=== PATIENT | male | born 1980 | race American Indian/Alaskan Native ===

== ENCOUNTER 2018-05-17 21:51 | Inpatient (IN) | payer OTHER ==
--- NOTE | 2018-05-18 01:57 | XRay Report ---
PROCEDURE: XR CHEST 1V AP TECHNIQUE: A single view of the chest was obtained. HISTORY: Chest Pain COMPARISONS: None FINDINGS: The heart size and vascularity appear normal. The lungs are clear. Pleural fluid is not seen. The bon es and soft tissues do not show any acute changes. IMPRESSION: No acute cardiopulmonary process.. This document is electronically signed by Lion Dixon MD., May 18 2018 01:55:07 AM ET
[2018-05-18 01:59] LABS: Basophils % (Auto) 0.2 % (0.0-1.8); Eosinophils % (Auto) 0.1 % (0.0-4.3); Hematocrit 35.8 % (35.5-45.6); Hemoglobin 12.6 gm/dl (11.8-15.2); Lymphocytes % (Auto) 17.8 % (13.4-35.0); Mean Corpuscular HGB Conc 35 % (32-34); Mean Corpuscular Volume 84 fl (84-94); Monocytes # (Auto) 0.8 K/mm3 (0.0-0.8); Monocytes % (Auto) 7.2 % (0.0-7.3); Platelet Count 125 K/mm3 (140-440); Red Blood Count 4.27 M/mm3 (3.65-5.03); Red Cell Distribution Width 13.6 % (13.2-15.2)
[2018-05-18 02:34] LABS: BUN/Creatinine Ratio 8; Blood Urea Nitrogen 5 mg/dL (9-20); Calcium 9.1 mg/dL (8.4-10.2); Hemolysis Index 6
[2018-05-18 03:07] LABS: Amphetamine Screen,Urine PRESUMPTIVE NEGATIVE; Benzodiazepines Screen,Urine PRESUMPTIVE NEGATIVE; Cannabinoid Screen,Urine PRESUMPTIVE NEGATIVE; Cocaine Screen,Urine PRESUMPTIVE NEGATIVE; Methadone Screen,Urine PRESUMPTIVE NEGATIVE; Opiate Screen,Urine PRESUMPTIVE NEGATIVE
[2018-05-18 03:27] LABS: Bilirubin,Urine NEG (Negative); Blood,Urine MOD (Negative); Color,Urine Straw (Yellow); Protein,Urine <15 mg/dL mg/dL (Negative); Urobilinogen,Urine < 2.0 mg/dL (<2.0); WBC,Urine < 1.0 /HPF (0.0-6.0)
[2018-05-18] MEDS ORDERED: NACL 0.9% 1000 ML 1,000 ML IV ONE (06:10)
[2018-05-18] MEDS ORDERED: K-DUR PO ONE (06:10)
--- NOTE | 2018-05-18 06:10 | Emergency Department Report ---
ED General Adult HPI - General Chief complaint: Psych Stated complaint: DETOX Time Seen by Provider: 05/18/18 06:08 Source: patient Mode of arrival: Ambulatory Limitations: No Limitations - History of Present Illness Initial comments: This is a 38 year old man that states "I drank anything I can get". He is accompanied by staff from the [place] [facility] who brought him here for medical clearance. He is not going to be medically cleared today as he is altered with hyponatremia. He is not able to provide me with much of the history. He is awake and will answer questions but not in any significant detail. He has no active complaints. He tells me his first name but not his last. He does not state where he is. He denies other substance abuse. He denies any overdose of other medication. He requested detox at the [facility]. -: year(s) Associated Symptoms: denies other symptoms (Limited review of systems) - Related Data Allergies Allergy/AdvReac Type Severity Reaction Status Date / Time escitalopram [From Lexapro] Allergy Unknown Verified 05/17/18 21:54 ED Review of Systems ROS: Stated complaint: DETOX Other details as noted in HPI Comment: Unobtainable due to pts medical conditions (Limited) ED Past Medical Hx - Past Medical History Previous Medical History?: Yes Hx Psychiatric Treatment: Yes (etoh) Hx Asthma: Yes Additional medical history: States he has been told his sodium was low in the past. - Surgical History Past Surgical History?: No - Social History Smoking Status: Never Smoker Substance Use Type: Alcohol ED Physical Exam - General General appearance: in no apparent distress, lethargic (mildly) - Head Head exam: Present: atraumatic, normocephalic - Eye Eye exam: Present: normal appearance, PERRL, EOMI. Absent: scleral icterus - ENT ENT exam: Present: mucous membranes moist - Neck Neck exam: Present: normal inspection. Absent: tenderness, meningismus - Respiratory Respiratory exam: Present: normal lung sounds bilaterally. Absent: respiratory distress - Cardiovascular Cardiovascular Exam: Present: regular rate, normal rhythm. Absent: systolic murmur, diastolic murmur, rubs, gallop - GI/Abdominal GI/Abdominal exam: Present: soft, normal bowel sounds, other (obese). Absent: distended, tenderness, guarding, rebound, rigid - Rectal Rectal exam: Present: deferred - Extremities Exam Extremities exam: Present: normal inspection - Back Exam Back exam: Present: normal inspection - Neurological Exam Neurological exam: Present: alert, oriented X3, CN II-XII intact. Absent: motor sensory deficit - Psychiatric Psychiatric exam: Present: normal mood, flat affect - Skin Skin exam: Present: warm, dry, intact, normal color. Absent: rash ED Course Vital Signs 05/17/18 22:50 Temperature 98.7 F Pulse Rate 118 H Respiratory 18 Rate Blood Pressure 148/91 O2 Sat by Pulse 98 Oximetry - Reevaluation(s) Reevaluation #1: I have begun repleting the patient's sodium. I've ordered a banana bag. He will need a CIWA protocol. He is meeting criteria for hospitalization. I will do a CT of his head first. 05/18/18 06:51 Reevaluation #2: Patient given Ativan at the request of the nurse and Zofran. CT of the head and chest x-ray normal. He will certainly suffer withdrawal and needs C1 protocol. Hospitalist will be informed of the need to admit etc. 05/18/18 08:28 ED Medical Decision Making - Lab Data Result diagrams: 05/18/18 01:45 05/18/18 01:45 Laboratory Results - last 24 hr 05/18/18 05/18/18 05/18/18 01:45 01:45 01:45 WBC RBC Hgb Hct MCV MCH MCHC RDW Plt Count Lymph % (Auto) Bibb % (Auto) Eos % (Auto) Baso % (Auto) Lymph # Bibb # Eos # Baso # Seg Neutrophils % Seg Neutrophils # Sodium 125 L Potassium 3.0 L Chloride 79.3 L Carbon Dioxide 25 Anion Gap 24 BUN 5 L Creatinine 0.6 L Estimated GFR > 60 BUN/Creatinine Ratio 8 Glucose 173 H Calcium 9.1 Troponin T < 0.010 Urine Color Urine Turbidity Urine pH Ur Specific [place] Urine Protein Urine Glucose (UA) Urine Ketones Urine Blood Urine Nitrite Urine Bilirubin Urine Urobilinogen Ur Leukocyte Esterase Urine WBC (Auto) Urine RBC (Auto) Salicylates < 0.3 L Urine Opiates Screen Urine Methadone Screen Acetaminophen < 5.0 L Ur Barbiturates Screen Ur Phencyclidine Scrn Ur Amphetamines Screen U Benzodiazepines Scrn Urine Cocaine Screen U Marijuana (THC) Screen Drugs of Abuse Note Plasma/Serum Alcohol 05/18/18 05/18/18 05/18/18 01:45 01:45 02:36 WBC 11.1 H RBC 4.27 Hgb 12.6 Hct 35.8 MCV 84 MCH 30 MCHC 35 H RDW 13.6 Plt Count 125 L Lymph % (Auto) 17.8 Bibb % (Auto) 7.2 Eos % (Auto) 0.1 Baso % (Auto) 0.2 Lymph # 2.0 Bibb # 0.8 Eos # 0.0 Baso # 0.0 Seg Neutrophils % 74.7 H Seg Neutrophils # 8.3 H Sodium Potassium Chloride Carbon Dioxide Anion Gap BUN Creatinine Estimated GFR BUN/Creatinine Ratio Glucose Calcium Troponin T Urine Color Straw Urine Turbidity Clear Urine pH 7.0 Ur Specific [place] 1.002 L Urine Protein <15 mg/dl Urine Glucose (UA) Neg Urine Ketones Neg Urine Blood Mod Urine Nitrite Neg Urine Bilirubin Neg Urine Urobilinogen < 2.0 Ur Leukocyte Esterase Neg Urine WBC (Auto) < 1.0 Urine RBC (Auto) 1.0 Salicylates Urine Opiates Screen Urine Methadone Screen Acetaminophen Ur Barbiturates Screen Ur Phencyclidine Scrn Ur Amphetamines Screen U Benzodiazepines Scrn Urine Cocaine Screen U Marijuana (THC) Screen Drugs of Abuse Note Plasma/Serum Alcohol 0.16 H 05/18/18 05/18/18 02:36 04:44 WBC RBC Hgb Hct MCV MCH MCHC RDW Plt Count Lymph % (Auto) Bibb % (Auto) Eos % (Auto) Baso % (Auto) Lymph # Bibb # Eos # Baso # Seg Neutrophils % Seg Neutrophils # Sodium Potassium Chloride Carbon Dioxide Anion Gap BUN Creatinine Estimated GFR BUN/Creatinine Ratio Glucose Calcium Troponin T < 0.010 Urine Color Urine Turbidity Urine pH Ur Specific [place] Urine Protein Urine Glucose (UA) Urine Ketones Urine Blood Urine Nitrite Urine Bilirubin Urine Urobilinogen Ur Leukocyte Esterase Urine WBC (Auto) Urine RBC (Auto) Salicylates Urine Opiates Screen Presumptive negative Urine Methadone Screen Presumptive negative Acetaminophen Ur Barbiturates Screen Presumptive negative Ur Phencyclidine Scrn Presumptive negative Ur Amphetamines Screen Presumptive negative U Benzodiazepines Scrn Presumptive negative Urine Cocaine Screen Presumptive negative U Marijuana (THC) Screen Presumptive negative Drugs of Abuse Note Disclamer Plasma/Serum Alcohol Laboratory Results - last 24 hr 05/18/18 05/18/18 05/18/18 01:45 01:45 01:45 WBC RBC Hgb Hct MCV MCH MCHC RDW Plt Count Lymph % (Auto) Bibb % (Auto) Eos % (Auto) Baso % (Auto) Lymph # Bibb # Eos # Baso # Seg Neutrophils % Seg Neutrophils # PT INR APTT Sodium 125 L Potassium 3.0 L Chloride 79.3 L Carbon Dioxide 25 Anion Gap 24 BUN 5 L Creatinine 0.6 L Estimated GFR > 60 BUN/Creatinine Ratio 8 Glucose 173 H Osmolality Calcium 9.1 Magnesium Total Bilirubin Direct Bilirubin Indirect Bilirubin AST ALT Alkaline Phosphatase Total Creatine Kinase CK-MB (CK-2) CK-MB (CK-2) Rel Index Troponin T < 0.010 NT-Pro-B Natriuret Pep Total Protein Albumin Albumin/Globulin Ratio Lipase Urine Color Urine Turbidity Urine pH Ur Specific [place] Urine Protein Urine Glucose (UA) Urine Ketones Urine Blood Urine Nitrite Urine Bilirubin Urine Urobilinogen Ur Leukocyte Esterase Urine WBC (Auto) Urine RBC (Auto) Salicylates < 0.3 L Urine Opiates Screen Urine Methadone Screen Acetaminophen < 5.0 L Ur Barbiturates Screen Ur Phencyclidine Scrn Ur Amphetamines Screen U Benzodiazepines Scrn Urine Cocaine Screen U Marijuana (THC) Screen Drugs of Abuse Note Plasma/Serum Alcohol 05/18/18 05/18/18 05/18/18 01:45 01:45 02:36 WBC 11.1 H RBC 4.27 Hgb 12.6 Hct 35.8 MCV 84 MCH 30 MCHC 35 H RDW 13.6 Plt Count 125 L Lymph % (Auto) 17.8 Bibb % (Auto) 7.2 Eos % (Auto) 0.1 Baso % (Auto) 0.2 Lymph # 2.0 Bibb # 0.8 Eos # 0.0 Baso # 0.0 Seg Neutrophils % 74.7 H Seg Neutrophils # 8.3 H PT INR APTT Sodium Potassium Chloride Carbon Dioxide Anion Gap BUN Creatinine Estimated GFR BUN/Creatinine Ratio Glucose Osmolality Calcium Magnesium Total Bilirubin Direct Bilirubin Indirect Bilirubin AST ALT Alkaline Phosphatase Total Creatine Kinase CK-MB (CK-2) CK-MB (CK-2) Rel Index Troponin T NT-Pro-B Natriuret Pep Total Protein Albumin Albumin/Globulin Ratio Lipase Urine Color Straw Urine Turbidity Clear Urine pH 7.0 Ur Specific [place] 1.002 L Urine Protein <15 mg/dl Urine Glucose (UA) Neg Urine Ketones Neg Urine Blood Mod Urine Nitrite Neg Urine Bilirubin Neg Urine Urobilinogen < 2.0 Ur Leukocyte Esterase Neg Urine WBC (Auto) < 1.0 Urine RBC (Auto) 1.0 Salicylates Urine Opiates Screen Urine Methadone Screen Acetaminophen Ur Barbiturates Screen Ur Phencyclidine Scrn Ur Amphetamines Screen U Benzodiazepines Scrn Urine Cocaine Screen U Marijuana (THC) Screen Drugs of Abuse Note Plasma/Serum Alcohol 0.16 H 05/18/18 05/18/18 05/18/18 02:36 04:44 06:27 WBC RBC Hgb Hct MCV MCH MCHC RDW Plt Count Lymph % (Auto) Bibb % (Auto) Eos % (Auto) Baso % (Auto) Lymph # Bibb # Eos # Baso # Seg Neutrophils % Seg Neutrophils # PT 15.5 H INR 1.16 H APTT 28.3 Sodium Potassium Chloride Carbon Dioxide Anion Gap BUN Creatinine Estimated GFR BUN/Creatinine Ratio Glucose Osmolality Calcium Magnesium Total Bilirubin Direct Bilirubin Indirect Bilirubin AST ALT Alkaline Phosphatase Total Creatine Kinase CK-MB (CK-2) CK-MB (CK-2) Rel Index Troponin T < 0.010 NT-Pro-B Natriuret Pep Total Protein Albumin Albumin/Globulin Ratio Lipase Urine Color Urine Turbidity Urine pH Ur Specific [place] Urine Protein Urine Glucose (UA) Urine Ketones Urine Blood Urine Nitrite Urine Bilirubin Urine Urobilinogen Ur Leukocyte Esterase Urine WBC (Auto) Urine RBC (Auto) Salicylates Urine Opiates Screen Presumptive negative Urine Methadone Screen Presumptive negative Acetaminophen Ur Barbiturates Screen Presumptive negative Ur Phencyclidine Scrn Presumptive negative Ur Amphetamines Screen Presumptive negative U Benzodiazepines Scrn Presumptive negative Urine Cocaine Screen Presumptive negative U Marijuana (THC) Screen Presumptive negative Drugs of Abuse Note Disclamer Plasma/Serum Alcohol 05/18/18 05/18/18 05/18/18 06:27 06:27 06:27 WBC RBC Hgb Hct MCV MCH MCHC RDW Plt Count Lymph % (Auto) Bibb % (Auto) Eos % (Auto) Baso % (Auto) Lymph # Bibb # Eos # Baso # Seg Neutrophils % Seg Neutrophils # PT INR APTT Sodium Potassium Chloride Carbon Dioxide Anion Gap BUN Creatinine Estimated GFR BUN/Creatinine Ratio Glucose Osmolality 278 Calcium Magnesium 1.10 L Total Bilirubin 2.00 H Direct Bilirubin 0.6 H Indirect Bilirubin 1.4 AST 226 H ALT 67 H Alkaline Phosphatase 76 Total Creatine Kinase CK-MB (CK-2) CK-MB (CK-2) Rel Index Troponin T < 0.010 NT-Pro-B Natriuret Pep 31.89 Total Protein 8.0 Albumin 4.4 Albumin/Globulin Ratio 1.2 Lipase 55 Urine Color Urine Turbidity Urine pH Ur Specific [place] Urine Protein Urine Glucose (UA) Urine Ketones Urine Blood Urine Nitrite Urine Bilirubin Urine Urobilinogen Ur Leukocyte Esterase Urine WBC (Auto) Urine RBC (Auto) Salicylates Urine Opiates Screen Urine Methadone Screen Acetaminophen Ur Barbiturates Screen Ur Phencyclidine Scrn Ur Amphetamines Screen U Benzodiazepines Scrn Urine Cocaine Screen U Marijuana (THC) Screen Drugs of Abuse Note Plasma/Serum Alcohol 05/18/18 05/18/18 06:27 07:30 WBC RBC Hgb Hct MCV MCH MCHC RDW Plt Count Lymph % (Auto) Bibb % (Auto) Eos % (Auto) Baso % (Auto) Lymph # Bibb # Eos # Baso # Seg Neutrophils % Seg Neutrophils # PT INR APTT Sodium Potassium Chloride Carbon Dioxide Anion Gap BUN Creatinine Estimated GFR BUN/Creatinine Ratio Glucose Osmolality Calcium Magnesium Total Bilirubin Direct Bilirubin Indirect Bilirubin AST ALT Alkaline Phosphatase Total Creatine Kinase 4321 H CK-MB (CK-2) 22.2 H CK-MB (CK-2) Rel Index 0.5 Troponin T < 0.010 NT-Pro-B Natriuret Pep Total Protein Albumin Albumin/Globulin Ratio Lipase Urine Color Urine Turbidity Urine pH Ur Specific [place] Urine Protein Urine Glucose (UA) Urine Ketones Urine Blood Urine Nitrite Urine Bilirubin Urine Urobilinogen Ur Leukocyte Esterase Urine WBC (Auto) Urine RBC (Auto) Salicylates Urine Opiates Screen Urine Methadone Screen Acetaminophen Ur Barbiturates Screen Ur Phencyclidine Scrn Ur Amphetamines Screen U Benzodiazepines Scrn Urine Cocaine Screen U Marijuana (THC) Screen Drugs of Abuse Note Plasma/Serum Alcohol - EKG Data -: EKG Interpreted by [facility] EKG shows normal: sinus rhythm, axis, intervals, QRS complexes, ST-T waves Rate: tachycardia - EKG Data Interpretation: other (tiny R in the 2 sinus tachycardia and nonspecific) - Radiology Data Radiology results: report reviewed (chest x-ray no acute process) Critical care attestation.: If time is entered above; I have spent that time in minutes in the direct care of this critically ill patient, excluding procedure time. ED Disposition Clinical Impression: Hyponatremia, Encephalopathy acute, Hypokalemia, Thrombocytopenia, Alcohol abuse Alcoholic cirrhosis Qualifiers: Ascites presence: unspecified Qualified Code(s): K70.30 - Alcoholic cirrhosis of liver without ascites Rhabdomyolysis Qualifiers: Rhabdomyolysis type: non-traumatic Qualified Code(s): M62.82 - Rhabdomyolysis Alcohol withdrawal Qualifiers: Complication of substance-induced condition: uncomplicated Qualified Code(s): F10.230 - Alcohol dependence with withdrawal, uncomplicated Disposition: DC-09 OP ADMIT IP TO THIS HOSP Is pt being admited?: Yes Does the pt Need Aspirin: Yes Condition: Stable Time of Disposition: 08:29
[2018-05-18] MEDS ORDERED: VITAMIN B-1 PO ONE (06:19)
[2018-05-18] MEDS ORDERED: FOLVITE 1 MG, INFUVITE 10 ML in NACL 0.9% 1000 ML 1,000 ML IV ONE (06:19)
[2018-05-18] MEDS ORDERED: VITAMIN B-1 100 MG, FOLVITE 1 MG, INFUVITE 10 ML in NACL 0.9% 1000 ML 1,000 ML IV ONE (06:19)
[2018-05-18 07:07] LABS: Creatine Kinase MB 22.2 ng/mL (0.0-4.0)
[2018-05-18 07:09] LABS: INR 1.16 (0.87-1.13); Partial Thromboplastin Time 28.3 Sec. (24.2-36.6)
[2018-05-18 07:13] LABS: Albumin 4.4 g/dL (3.9-5); Bilirubin,Direct 0.6 mg/dL (0-0.2)
--- NOTE | 2018-05-18 07:31 | Cat Scan Report ---
PROCEDURE: CT HEAD/BRAIN WO CON TECHNIQUE: Routine axial imaging was obtained of the brain without IV contrast. HISTORY: AMS low sodium COMPARISONS: None FINDINGS: There is no evidence of acute stroke or hemorrhage. The ventricular system is appropriate in size and is symmetric. The visualized sinuses are clear. The calvarium appears normal. IMPRESSION: Within normal limits.. This document is electronically signed by Lion Dixon MD., May 18 2018 07:29:02 AM ET
[2018-05-18] MEDS ORDERED: ATIVAN IV ONE (08:11)
[2018-05-18] MEDS ORDERED: ZOFRAN IV ONE (08:13)
[2018-05-18] MEDS ORDERED: BABY ASPIRIN PO ONE (08:30)
[2018-05-18 12:50] LABS: Bilirubin,Urine NEG (Negative); Blood,Urine NEG (Negative); Color,Urine Straw (Yellow); Protein,Urine <15 mg/dL mg/dL (Negative); Urobilinogen,Urine < 2.0 mg/dL (<2.0)
[2018-05-18] MEDS ORDERED: ATIVAN IV PRN ×2 (13:09→13:12)
[2018-05-18] MEDS ORDERED: LIBRIUM PO PRN ×2 (13:10→17:12)
[2018-05-18] MEDS ORDERED: TYLENOL PO PRN (13:11)
[2018-05-18] MEDS ORDERED: PERCOCET 5/325 PO PRN (13:11)
[2018-05-18] MEDS ORDERED: APRESOLINE IV PRN (13:11)
[2018-05-18] MEDS ORDERED: REGLAN PO PRN (13:11)
[2018-05-18] MEDS ORDERED: NON-FORMULARY (Omeprazole 40 MG) PO SCH (13:15)
--- NOTE | 2018-05-18 13:15 | History and Physical Report ---
History of Present Illness Date of examination: 05/18/18 Date of admission: 05/18/18 08:45 Chief complaint: My sodium was low History of present illness: This is a 38 year old man with h/o asthma and heavy alcohol drinking for years, last drink was yesterday accompanied by staff from the [facility] who brought him here for medical clearance. He is not going to be medically cleared today as he was altered with hyponatremia. In the ER his Na noted 123, K 3.0, CPK 4321. He was placed on iv fluid and called for admission. During this encounter he was oriented X3, able to provide history, denies any chest pain. The patient was admitted for further evaluation and management. Past medical History: h/o asthma Past surgical History: None Social History: Lives with family, + smoking, + drinking and denies elicit drug abuse. Family History: Significant for cancer at the maternal side. Does not know father's history. Review of System: Constitutional: no fever, no chills, no weight loss Ears, eyes, nose, mouth and throat: no nasal congestion, no nasal discharge, no sinus pressure, no vision change, no red eye. Neck: No neck pain or rigidity. Cardiovascular: No chest pain, no orthopnea, no palpitations, no leg swelling Respiratory: No shortness of breath, no cough, no congestion, no wheezing Gastrointestinal: no abdominal pain, no nausea, no vomiting Genitourinary : no dysuria, no hematuria Musculoskeletal: no joint swelling or muscle ache Integumentary: no rash, no pruritis Neurological: no parathesias, no numbness, no tingling Endocrine: no cold or heat intolerance, no polyuria or polydipsia Hematologic/Lymphatic: no easy bruising, no easy bleeding, no gland swelling Allergic/Immunologic: no urticaria, no angioedema. Medications and Allergies Allergies Allergy/AdvReac Type Severity Reaction Status Date / Time escitalopram [From Lexapro] Allergy Unknown Verified 05/17/18 21:54 Home Medications Medication Instructions Recorded Confirmed Last Taken Type Carvedilol [Coreg] 12.5 mg PO DAILY 05/18/18 05/18/18 05/16/18 History Losartan [Cozaar] 160 mg PO QDAY 05/18/18 05/18/18 05/16/18 History Multivit,Stress Formula/Zinc 1 tab PO DAILY 05/18/18 05/18/18 05/16/18 History Omeprazole 40 mg PO DAILY 05/18/18 05/18/18 05/16/18 History hydroCHLOROthiazide 25 mg PO DAILY 05/18/18 05/18/18 05/16/18 History Active Meds: Active Medications Acetaminophen (Tylenol) 650 mg PO Q4H PRN PRN Reason: Pain MILD(1-3)/Fever >100.5/ISAAC Carvedilol (Coreg) 12.5 mg PO DAILY [facility] Chlordiazepoxide HCl (Librium) 50 mg PO Q1H PRN PRN Reason: CIWA-Ar 8-15 Folic Acid (Folvite) 1 mg PO QDAY [facility] Hydralazine HCl (Apresoline) 5 mg IV Q30MIN PRN PRN Reason: Hypertension Potassium Chloride/Dextrose/Sod Cl (D5w/Ns W/Kcl 20meq) 20 meq in 1,000 mls @ 75 mls/hr IV DIRECT [facility] Insulin Human Regular (Humulin R) 0 units SUB-Q ACHS MEGAN; Protocol Lorazepam (Ativan) 1 mg IV Q4H PRN PRN Reason: Agitation Metoclopramide HCl (Reglan) 10 mg PO Q6H PRN PRN Reason: Nausea And Vomiting Miscellaneous Medication (Omeprazole) 40 mg PO DAILY [facility] Oxycodone/Acetaminophen (Percocet 5/325) 1 tab PO Q6H PRN PRN Reason: Pain, Moderate (4-6) Pneumococcal Polyvalent Vaccine (Pneumovax 23) 0.5 ml IM .ONCE ONE Stop: 05/19/18 12:01 Thiamine HCl (Vitamin B-1) 100 mg PO QDAY [facility] Exam - Physical Exam Narrative exam: GENERAL: well-developed and well-nourished obese WM lying on bed appeared to be in no discomfort. HEENT: Normocephalic. Atraumatic. No conjunctival congestion or icterus. Patient has moist mucous membranes. NECK: Supple. Trachea midline. CHEST/LUNGS: Clear to auscultated bilaterally, breathing nonlabored. No wheezes crackles or rhonchi. HEART/CARDIOVASCULAR: Regular in rate and rhythm. S1 and S2 positive. ABDOMEN: Abdomen is soft, nontender. Patient has normal bowel sounds. SKIN: There is no rash. Warm and dry. NEURO: No focal motor deficit. Follows command. MUSCULOSKELETAL: No joint effusion or tenderness. EXTRIMITY: No edema, no cyanosis or clubbing. PSYCH: Cooperative. - Constitutional Vitals: Temp Pulse Resp BP Pulse Ox 100.0 F H 105 H 20 161/85 93 05/18/18 11:13 05/18/18 11:13 05/18/18 11:13 05/18/18 11:13 05/18/18 11:13 Results - Labs CBC & Chem 7: 05/19/18 06:30 05/20/18 04:36 Labs: Abnormal lab results 05/18/18 05/18/18 05/18/18 Range/Units 01:45 01:45 01:45 WBC (4.5-11.0) K/mm3 MCHC (32-34) % Plt Count (140-440) K/mm3 Seg Neutrophils % (40.0-70.0) % Seg Neutrophils # (1.8-7.7) K/mm3 PT (12.2-14.9) Sec. INR (0.87-1.13) Sodium 125 L (137-145) mmol/L Potassium 3.0 L (3.6-5.0) mmol/L Chloride 79.3 L (98-107) mmol/L BUN 5 L (9-20) mg/dL Creatinine 0.6 L (0.8-1.5) mg/dL Glucose 173 H (75-100) mg/dL Magnesium (1.7-2.3) mg/dL Total Bilirubin (0.1-1.2) mg/dL Direct Bilirubin (0-0.2) mg/dL AST (5-40) units/L ALT (7-56) units/L Total Creatine Kinase (55-170) units/L CK-MB (CK-2) (0.0-4.0) ng/mL Ur Specific [place] (1.003-1.030) Salicylates < 0.3 L (2.8-20.0) mg/dL Acetaminophen < 5.0 L (10.0-30.0) ug/mL Plasma/Serum Alcohol (0-0.07) % 05/18/18 05/18/18 05/18/18 Range/Units 01:45 01:45 02:36 WBC 11.1 H (4.5-11.0) K/mm3 MCHC 35 H (32-34) % Plt Count 125 L (140-440) K/mm3 Seg Neutrophils % 74.7 H (40.0-70.0) % Seg Neutrophils # 8.3 H (1.8-7.7) K/mm3 PT (12.2-14.9) Sec. INR (0.87-1.13) Sodium (137-145) mmol/L Potassium (3.6-5.0) mmol/L Chloride (98-107) mmol/L BUN (9-20) mg/dL Creatinine (0.8-1.5) mg/dL Glucose (75-100) mg/dL Magnesium (1.7-2.3) mg/dL Total Bilirubin (0.1-1.2) mg/dL Direct Bilirubin (0-0.2) mg/dL AST (5-40) units/L ALT (7-56) units/L Total Creatine Kinase (55-170) units/L CK-MB (CK-2) (0.0-4.0) ng/mL Ur Specific [place] 1.002 L (1.003-1.030) Salicylates (2.8-20.0) mg/dL Acetaminophen (10.0-30.0) ug/mL Plasma/Serum Alcohol 0.16 H (0-0.07) % 05/18/18 05/18/18 05/18/18 Range/Units 06:27 06:27 06:27 WBC (4.5-11.0) K/mm3 MCHC (32-34) % Plt Count (140-440) K/mm3 Seg Neutrophils % (40.0-70.0) % Seg Neutrophils # (1.8-7.7) K/mm3 PT 15.5 H (12.2-14.9) Sec. INR 1.16 H (0.87-1.13) Sodium (137-145) mmol/L Potassium (3.6-5.0) mmol/L Chloride (98-107) mmol/L BUN (9-20) mg/dL Creatinine (0.8-1.5) mg/dL Glucose (75-100) mg/dL Magnesium 1.10 L (1.7-2.3) mg/dL Total Bilirubin 2.00 H (0.1-1.2) mg/dL Direct Bilirubin 0.6 H (0-0.2) mg/dL AST 226 H (5-40) units/L ALT 67 H (7-56) units/L Total Creatine Kinase 4321 H (55-170) units/L CK-MB (CK-2) 22.2 H (0.0-4.0) ng/mL Ur Specific [place] (1.003-1.030) Salicylates (2.8-20.0) mg/dL Acetaminophen (10.0-30.0) ug/mL Plasma/Serum Alcohol (0-0.07) % 05/18/18 Range/Units 12:00 WBC (4.5-11.0) K/mm3 MCHC (32-34) % Plt Count (140-440) K/mm3 Seg Neutrophils % (40.0-70.0) % Seg Neutrophils # (1.8-7.7) K/mm3 PT (12.2-14.9) Sec. INR (0.87-1.13) Sodium (137-145) mmol/L Potassium (3.6-5.0) mmol/L Chloride (98-107) mmol/L BUN (9-20) mg/dL Creatinine (0.8-1.5) mg/dL Glucose (75-100) mg/dL Magnesium (1.7-2.3) mg/dL Total Bilirubin (0.1-1.2) mg/dL Direct Bilirubin (0-0.2) mg/dL AST (5-40) units/L ALT (7-56) units/L Total Creatine Kinase (55-170) units/L CK-MB (CK-2) (0.0-4.0) ng/mL Ur Specific [place] 1.002 L (1.003-1.030) Salicylates (2.8-20.0) mg/dL Acetaminophen (10.0-30.0) ug/mL Plasma/Serum Alcohol (0-0.07) % - Imaging and Cardiology Chest x-ray: report reviewed (no acute process) CT Scan - head: report reviewed (no acute intracraneal process) Assessment and Plan SIRS, with elevated white count and low grade fever w/o organ dysfunction Acute alcohol intoxication Hyponatremia Thrombocytopenia Hypomagnesemia Elevated LFT HTN, elevated/uncontrolled Rhabdomyolysis Asthma, not in exacerbation - admit to medsurge, obtain blood cx - replete electrolytes, IV fluid, iv abx - monitor CMP/cpk/CBC - place on CIWA protocol, regular diet - resume home meds for BP control - SCD for DVT Px CT head : no acute process CXR: no infiltrates
[2018-05-18] MEDS: PROTONIX PO SCH (15:18)
[2018-05-18] MEDS: D5W/NS W/KCL 20MEQ 20 MEQ/1,000 ML BAG IV SCH (15:18)
[2018-05-18] MEDS: COREG PO SCH (15:18)
[2018-05-18] MEDS ORDERED: MAGNESIUM SULFATE IV ONE (16:33)
[2018-05-18] MEDS: HumuLIN R SUB-Q SCH ×2 (17:02→22:58)
[2018-05-18] MEDS ORDERED: MAGNESIUM SULFATE 1 GM in NACL 0.9% 50 ML IV ONE (18:00)
[2018-05-18] MEDS ORDERED: VASELINE LIP THERAPY TP PRN (19:03)
[2018-05-18] MEDS: ROCEPHIN/NS 1 GM/50 ML 1 GM/50 ML BAG IV SCH (21:12)
[2018-05-18] MEDS: LIBRIUM PO SCH (21:13)
[2018-05-19] MEDS: D5W/NS W/KCL 20MEQ 20 MEQ/1,000 ML BAG IV SCH ×2 (03:18→14:46)
[2018-05-19 06:54] LABS: Basophils % (Auto) 0.4 % (0.0-1.8); Eosinophils % (Auto) 0.6 % (0.0-4.3); Hemoglobin 11.9 gm/dl (11.8-15.2); Lymphocytes # (Auto) 0.9 K/mm3 (1.2-5.4); Lymphocytes % (Auto) 15.1 % (13.4-35.0); Mean Corpuscular HGB Conc 35 % (32-34); Mean Corpuscular Volume 85 fl (84-94); Monocytes # (Auto) 0.5 K/mm3 (0.0-0.8); Monocytes % (Auto) 8.2 % (0.0-7.3); Red Blood Count 4.01 M/mm3 (3.65-5.03); Red Cell Distribution Width 14.1 % (13.2-15.2)
[2018-05-19 06:55] LABS: Platelet Count 71 K/mm3 (140-440)
[2018-05-19 07:16] LABS: Alanine Aminotransferase 68 units/L (7-56); Albumin 4.3 g/dL (3.9-5); BUN/Creatinine Ratio 11; Blood Urea Nitrogen 8 mg/dL (9-20); Calcium 8.9 mg/dL (8.4-10.2); Hemolysis Index 1
[2018-05-19] MEDS: HumuLIN R SUB-Q SCH ×4 (07:30→21:53)
[2018-05-19] MEDS: LIBRIUM PO SCH ×3 (08:00→21:55)
[2018-05-19] MEDS: ROCEPHIN/NS 1 GM/50 ML 1 GM/50 ML BAG IV SCH ×2 (09:03→21:55)
[2018-05-19] MEDS: PROTONIX PO SCH (09:03)
[2018-05-19] MEDS: FOLVITE PO SCH (09:05)
[2018-05-19] MEDS: COREG PO SCH (09:05)
[2018-05-19] MEDS: VITAMIN B-1 PO SCH (09:05)
[2018-05-19] MEDS ORDERED: AFLURIA QUAD 2018-2019 SYRINGE IM ONE (12:00)
[2018-05-19] MEDS ORDERED: PNEUMOVAX 23 IM ONE (12:00)
[2018-05-19] MEDS ORDERED: K-DUR PO ONE (14:24)
--- NOTE | 2018-05-19 14:25 | Progress Note ---
Assessment and Plan SIRS, with elevated white count and low grade fever w/o organ dysfunction - no clear etiology, could be reactive Acute alcohol intoxication Hyponatremia Thrombocytopenia Hypomagnesemia Elevated LFT, alcoholic liver disease HTN, elevated/uncontrolled Rhabdomyolysis h/o Asthma, not in exacerbation - monitor at [facility], Cx ordered but not obtained - cont to replete electrolytes, IV fluid, iv abx - monitor CMP/cpk/CBC - cont on CIWA protocol, regular diet - resume home meds for BP control - SCD for DVT Px CT head : no acute process CXR: no infiltrates Physical exam: GENERAL: well-developed and well-nourished WM lying on bed appeared to be in no discomfort. HEENT: Normocephalic. Atraumatic. No conjunctival congestion or icterus. Patient has moist mucous membranes. NECK: Supple. Trachea midline. CHEST/LUNGS: Clear to auscultated bilaterally, breathing nonlabored. No wheezes crackles or rhonchi. HEART/CARDIOVASCULAR: Regular in rate and rhythm. S1 and S2 positive. ABDOMEN: Abdomen is soft, nontender. Patient has normal bowel sounds. SKIN: There is no rash. Warm and dry. NEURO: No focal motor deficit. Follows command. MUSCULOSKELETAL: No joint effusion or tenderness. EXTRIMITY: No edema, no cyanosis or clubbing. PSYCH: Cooperative. Subjective Date of service: 05/19/18 Interval history: Patient seen and examined. Medical records and medication list reviewed. No acute event overnight noted by the RN. Patient denies any chest pain or difficulty breathing. Patient is tolerating diet. Discussed plan of care at bedside with patient. Objective - Constitutional Vitals: Vital Signs - 12hr 05/19/18 05/19/18 03:29 11:43 Temperature 98.9 F 97.7 F Pulse Rate 85 93 H Respiratory 18 18 Rate Blood Pressure 165/88 119/59 O2 Sat by Pulse 96 97 Oximetry - Labs CBC & Chem 7: 05/19/18 06:30 05/20/18 04:36 Labs: Abnormal lab results 05/18/18 05/18/18 05/19/18 Range/Units 16:02 21:23 06:30 Hct 34.0 L (35.5-45.6) % MCHC 35 H (32-34) % Plt Count 71 L (140-440) K/mm3 Hancock % (Auto) 8.2 H (0.0-7.3) % Lymph # 0.9 L (1.2-5.4) K/mm3 Seg Neutrophils % 75.7 H (40.0-70.0) % Sodium (137-145) mmol/L Potassium (3.6-5.0) mmol/L Chloride (98-107) mmol/L BUN (9-20) mg/dL Creatinine (0.8-1.5) mg/dL Glucose (75-100) mg/dL POC Glucose 161 H 185 H (70-105) Total Bilirubin (0.1-1.2) mg/dL AST (5-40) units/L ALT (7-56) units/L 05/19/18 05/19/18 05/19/18 Range/Units 06:30 08:36 11:18 Hct (35.5-45.6) % MCHC (32-34) % Plt Count (140-440) K/mm3 Hancock % (Auto) (0.0-7.3) % Lymph # (1.2-5.4) K/mm3 Seg Neutrophils % (40.0-70.0) % Sodium 136 L D (137-145) mmol/L Potassium 3.1 L (3.6-5.0) mmol/L Chloride 93.2 L (98-107) mmol/L BUN 8 L (9-20) mg/dL Creatinine 0.7 L (0.8-1.5) mg/dL Glucose 187 H (75-100) mg/dL POC Glucose 202 H 167 H (70-105) Total Bilirubin 2.40 H (0.1-1.2) mg/dL AST 199 H (5-40) units/L ALT 68 H (7-56) units/L
[2018-05-20 05:37] LABS: Alanine Aminotransferase 73 units/L (7-56); Albumin 4.1 g/dL (3.9-5); BUN/Creatinine Ratio 17; Bilirubin,Direct 0.7 mg/dL (0-0.2); Blood Urea Nitrogen 12 mg/dL (9-20); Calcium 8.9 mg/dL (8.4-10.2); Hemolysis Index 6
[2018-05-20 07:02] VITALS: BP 143/83
[2018-05-20] MEDS: HumuLIN R SUB-Q SCH (07:30)
[2018-05-20] MEDS: LIBRIUM PO SCH (08:00)
--- NOTE | 2018-05-20 08:43 | Discharge Summary ---
Providers - Providers Date of Admission: 05/18/18 08:45 Date of discharge: 05/20/18 Attending physician: KIANNA VILLAR 05/19/18 14:46 Consult to Physician [CONS] Routine Comment: Consulting Provider: YOBANI CARUSO Physician Instructions: Reason For Exam: alcoholic liver disease [facility] Condition: Stable Hospital course: This is a 38 year old man with h/o asthma and heavy alcohol drinking for years, last drink was yesterday accompanied by staff from the [facility] who brought him here for medical clearance. He is not going to be medically cleared today as he was altered with hyponatremia. In the ER his Na noted 123, K 3.0, CPK 4321. He was placed on iv fluid and called for admission. During this encounter he was oriented X3, able to provide history, denies any chest pain. The patient was admitted for further evaluation and management. Discharge diagnosis; SIRS, with elevated white count and low grade fever w/o organ dysfunction - no clear etiology, could be reactive, was normal on discharge. Initially placed on abx, then discontinued before discharge Acute alcohol intoxication, placed on CIWa protocol with librium po and ativan as needed Hyponatremia, resolved with iv fluid Thrombocytopenia, due to alcoholic LD, stable Hypomagnesemia, repleted Elevated LFT, alcoholic liver disease, stable, will need further outpt f/u HTN, elevated/uncontrolled Rhabdomyolysis, CPK trended down h/o Asthma, not in exacerbation CT head : no acute process CXR: no infiltrates Physical exam: GENERAL: well-developed and well-nourished WM lying on bed appeared to be in no discomfort. HEENT: Normocephalic. Atraumatic. No conjunctival congestion or icterus. Patient has moist mucous membranes. NECK: Supple. Trachea midline. CHEST/LUNGS: Clear to auscultated bilaterally, breathing nonlabored. No wheezes crackles or rhonchi. HEART/CARDIOVASCULAR: Regular in rate and rhythm. S1 and S2 positive. ABDOMEN: Abdomen is soft, nontender. Patient has normal bowel sounds. SKIN: There is no rash. Warm and dry. NEURO: No focal motor deficit. Follows command. MUSCULOSKELETAL: No joint effusion or tenderness. EXTRIMITY: No edema, no cyanosis or clubbing. PSYCH: Cooperative. Disposition: DC/TX-70 ANOTHER TYPE HLTHCARE Time spent for discharge: 35 minutes Core Measure Documentation - Palliative Care Palliative Care/ Comfort Measures: Not Applicable - Core Measures Any of the following diagnoses?: none Exam - Constitutional Vitals: Temp Pulse Resp BP Pulse Ox 99.1 F 77 20 143/83 97 05/20/18 06:23 05/20/18 06:23 05/20/18 06:23 05/20/18 06:23 05/20/18 06:23 Plan Activity: advance as tolerated Weight Bearing Status: Weight Bear as Tolerated Diet: low fat Special Instructions: record daily BP diary Additional Instructions: f/u with GI outpt [facility] [Primary Care Provider] - 3-5 Days
[2018-05-20] MEDS ORDERED: ROCEPHIN/NS 2 GM/100 ML 2 GM/100 ML BAG IV SCH (10:00)
[2018-05-20] MEDS: PROTONIX PO SCH (10:05)
[2018-05-20] MEDS: COREG PO SCH (10:05)
[2018-05-20] MEDS: FOLVITE PO SCH (10:05)
[2018-05-20] MEDS: VITAMIN B-1 PO SCH (10:06)
--- NOTE | 2018-05-20 10:41 | Gastroenterology Consultation ---
History of Present Illness - Reason for Consult Consult date: 05/20/18 alcoholic liver disease Requesting physician: KIANNA VILLAR - History of Present Illness Patient is a 38 y/o male with PMH of HTN, asthma, and ETOH abuse who was brought here from [facility] for medical clearance. Upon admission, he was found to have hyponatremia and was admitted for treatment. GI has been consulted for evaluation of alcoholic liver disease due to elevated LFTs. This morning patient was resting in bed w/o acute distress. Noted to be alert and oriented x 3 w/o GI complaints. He reports a history of heavy alcohol use for over 25 years but has no hx of liver disease. No hx of IV drug use. Denies fever, wt loss, CP, SOB, jaundice, abd pain, N/V, signs of bleeding, or LGI symptoms. Tolerating diet. Past History Past Medical History: hypertension, other (asthma) Past Surgical History: No surgical history Social history: smoking, alcohol abuse. denies: IV drug use Medications and Allergies Allergies Allergy/AdvReac Type Severity Reaction Status Date / Time escitalopram [From Lexapro] Allergy Unknown Verified 05/17/18 21:54 Home Medications Medication Instructions Recorded Confirmed Last Taken Type Carvedilol [Coreg] 12.5 mg PO DAILY 05/18/18 05/18/18 05/16/18 History Losartan [Cozaar] 160 mg PO QDAY 05/18/18 05/18/18 05/16/18 History Multivit,Stress Formula/Zinc 1 tab PO DAILY 05/18/18 05/18/18 05/16/18 History Omeprazole 40 mg PO DAILY 05/18/18 05/18/18 05/16/18 History Folic Acid [Folvite] 1 mg PO QDAY tablet 05/20/18 Unknown Rx Thiamine [Vitamin B-1] 100 mg PO QDAY tablet 05/20/18 Unknown Rx Active Meds: Active Medications Acetaminophen (Tylenol) 650 mg PO Q4H PRN PRN Reason: Pain MILD(1-3)/Fever >100.5/ISAAC Carvedilol (Coreg) 12.5 mg PO DAILY [facility] Last Admin: 05/20/18 10:05 Dose: 12.5 mg Documented by: Chlordiazepoxide HCl (Librium) 25 mg PO Q1H PRN PRN Reason: CIWA-Ar 8-15 Chlordiazepoxide HCl (Librium) 25 mg PO TID [facility] Last Admin: 05/20/18 08:00 Dose: 25 mg Documented by: Folic Acid (Folvite) 1 mg PO QDAY [facility] Last Admin: 05/20/18 10:05 Dose: 1 mg Documented by: Hydralazine HCl (Apresoline) 5 mg IV Q30MIN PRN PRN Reason: HTN SYS>180 ANDI>100 Hydrophilic Ointment (Vaseline Lip Therapy) 1 applic TP DIRECT PRN PRN Reason: Dry Lips Last Admin: 05/18/18 22:57 Dose: 1 applic Documented by: Potassium Chloride/Dextrose/Sod Cl (D5w/Ns W/Kcl 20meq) 20 meq in 1,000 mls @ 100 mls/hr IV DIRECT [facility] Last Admin: 05/19/18 14:46 Dose: 75 mls/hr Documented by: Ceftriaxone Sodium (Rocephin/Ns 2 Gm/100 Ml) 2 gm in 100 mls @ 200 mls/hr IV Q24HR [facility] Last Admin: 05/20/18 10:04 Dose: 200 mls/hr Documented by: Insulin Human Regular (Humulin R) 0 units SUB-Q ACHS [facility]; Protocol Last Admin: 05/20/18 07:30 Dose: Not Given Documented by: Lorazepam (Ativan) 1 mg IV Q4H PRN PRN Reason: Agitation Metoclopramide HCl (Reglan) 10 mg PO Q6H PRN PRN Reason: Nausea And Vomiting Oxycodone/Acetaminophen (Percocet 5/325) 1 tab PO Q6H PRN PRN Reason: Pain, Moderate (4-6) Last Admin: 05/18/18 21:12 Dose: 1 tab Documented by: Pantoprazole Sodium (Protonix) 40 mg PO DAILY [facility] Last Admin: 05/20/18 10:05 Dose: 40 mg Documented by: Thiamine HCl (Vitamin B-1) 100 mg PO QDAY [facility] Last Admin: 05/20/18 10:06 Dose: 100 mg Documented by: medications reviewed/updated as required Review of Systems - Review of Systems All systems: negative Gastrointestinal: no abdominal pain, no nausea, no vomiting, no diarrhea, no constipation, no hematemesis, no melena, no hematochezia, no jaundice Exam - Constitutional Vital Signs: Temp Pulse Resp BP Pulse Ox 99.1 F 77 20 143/83 97 05/20/18 06:23 05/20/18 06:23 05/20/18 06:23 05/20/18 06:23 05/20/18 06:23 General appearance: no acute distress, obese - Respiratory Respiratory: bilateral: CTA - Cardiovascular Rhythm: regular - Gastrointestinal General gastrointestinal: Present: soft, non-tender, non-distended, normal bowel sounds, other (obese) - Neurologic Neurological: alert and oriented x3 - Labs CBC & Chem 7: 05/19/18 06:30 05/20/18 04:36 Lab Results: Laboratory Results - last 24 hr 05/19/18 05/19/18 05/19/18 11:18 15:34 15:47 Sodium Potassium Chloride Carbon Dioxide Anion Gap BUN Creatinine Estimated GFR BUN/Creatinine Ratio Glucose POC Glucose 167 H 268 H Calcium Total Bilirubin Direct Bilirubin Indirect Bilirubin AST ALT Alkaline Phosphatase Total Creatine Kinase 781 H Total Protein Albumin Albumin/Globulin Ratio 05/19/18 05/20/18 21:25 04:36 Sodium 139 Potassium 3.8 D Chloride 98.7 Carbon Dioxide 27 Anion Gap 17 BUN 12 Creatinine 0.7 L Estimated GFR > 60 BUN/Creatinine Ratio 17 Glucose 180 H POC Glucose 144 H Calcium 8.9 Total Bilirubin 1.80 H Direct Bilirubin 0.7 H Indirect Bilirubin 1.1 AST 161 H ALT 73 H Alkaline Phosphatase 76 Total Creatine Kinase Total Protein 7.2 Albumin 4.1 Albumin/Globulin Ratio 1.3 Assessment and Plan 1.elevated LFTs 2.H/o ETOH abuse -WBC 5.8 -H/H 11.9/34.0 -plt 71, INR 1.16 -lipase 55 -LFTs-T.sher 1.80, AST 161, ALT 73, alk phos 76-trending down -etiology-alcoholic hepatitis with possible underlying cirrhosis given labs and history -clinically, patient is stable with no encephalopathy noted upon exam. Denies abd pain, N/v, or active signs of bleeding. Tolerating diet. -DF 18- no recommendations for steroids -will order abd U/S for further evaluation of liver -hepatitis panel and repeat INR in am -continue empiric antibiotics and MVI -continue to trend labs and supportive care -electrolyte management per primary team -alcohol cessation discussed/encouraged with patient-monitor for signs of withdrawal -recommend patient f/u with GI in [place] where he lives for further management/treatment upon d/c -will follow 3.SIRS 4.acute alcohol intoxication (alcohol level 0.16 on admission) 5.hyponatremia 6.hypomagnesemia 7.HTN 8.rhabdomyolysis 9.H/o asthma
== END 2018-05-20 10:35 | disposition short-term general hospital (02) | DRG 433 ==
LOC: ED 21:51 → 3A 05-18 08:45
PROVIDERS: ADMIT Internal Medicine; ATTEND Internal Medicine
PROC: 3E0234Z Introduction of Serum, Toxoid and Vaccine into Muscle, Percutaneous Approach (ICD-10-PCS; principal; 2018-05-19)
DX: K70.10 Alcoholic hepatitis without ascites (principal); E87.1 Hypo-osmolality and hyponatremia; G93.40 Encephalopathy, unspecified; M62.82 Rhabdomyolysis; R65.10 Systemic inflammatory response syndrome (SIRS) of non-infectious origin without acute organ dysfunction; E87.6 Hypokalemia; F10.129 Alcohol abuse with intoxication, unspecified; E83.42 Hypomagnesemia; J45.909 Unspecified asthma, uncomplicated; D69.6 Thrombocytopenia, unspecified; I10 Essential (primary) hypertension; K70.30 Alcoholic cirrhosis of liver without ascites; F17.200 Nicotine dependence, unspecified, uncomplicated; Z23 Encounter for immunization; Z80.9 Family history of malignant neoplasm, unspecified; Z79.899 Other long term (current) drug therapy; Z71.41 Alcohol abuse counseling and surveillance of alcoholic
CPT/HCPCS: 36415; 70450; 71045; 80048; 80053; 80076; 80307; 80320; 81001; 82140; 82550; 82553; 82962; 83690; 83735; 83880; 83930; 84300; 84484; 85025; 85610; 85730; 90686; 90732; 93005; 93010; G0378; G0480; J0696; J1815; J2060; J2405; J3475; J7030